=== PATIENT | male | born 1940 | race Caucasian/White ===

== ENCOUNTER 2021-08-14 10:24 | Inpatient (IN) | payer MEDICARE ==
[~2021-08-14] VITALS: Ht 167.6 cm; Wt 83.5 kg
[2021-08-14 11:38] LABS: BASOPHILS % 0.9 % (0.0-2.0); EOSINOPHILS % 0.7 % (0.0-5.0); HEMATOCRIT. 52.5 % (42.0-52.0); HEMOGLOBIN. 16.9 g/dL (14.0-18.0); LYMPHOCYTES % 20.7 % (20.0-50.0); MEAN CORPUSCULAR HEMOGLOBIN 27.7 pg (28.0-32.0); MEAN CORPUSCULAR VOLUME 85.9 fL (80.0-94.0); MEAN PLATELET VOLUME 9.9 fl (7.4-10.4); MONOCYTES % 9.5 % (2.0-8.0); NEUTROPHILS % 68.2 % (40.0-76.0); PLATELET 150 x1000/uL (130-400); RED BLOOD CELL COUNT 6.11 mill/uL (4.7-6.1); RED CELL DISTRIBUTION WIDTH 15.6 % (11.6-14.6)
[2021-08-14 11:44] LABS: CHLORIDE 101 mEq/L (98-107)
[2021-08-14 11:46] LABS: ETHANOL BLOOD < 10 mg/dL
[2021-08-14] MEDS ORDERED: POTASSIUM CHLORIDE 20MEQ TABLET SR PO SCH (13:15)
[2021-08-14] MEDS: SODIUM CHLORIDE 0.9% 1,000 ML IV SCH (14:00)
[2021-08-14 14:42] LABS: FOLIC ACID (FOLATE) SERUM 8.9 ng/mL (>5.38)
[2021-08-14 14:47] LABS: CLARITY URINE CLOUDY (CLEAR); COLOR URINE DARK YELLOW (YELLOW); KETONES URINE 3+ (NEGATIVE); LEUKOCYTE ESTERASE URINE 1+ (NEGATIVE); NITRITE URINE POSITIVE (NEGATIVE); OCCULT BLOOD URINE NEGATIVE (NEGATIVE); PH URINE 5.5 (4.5-8.0); PROTEIN URINE 1+ (NEGATIVE); SPECIFIC GRAVITY URINE 1.035 (1.005-1.030)
[2021-08-14 15:05] LABS: *AMPHETAMINES SCREEN URINE NEGATIVE (NEGATIVE); *BARBITURATES SCREEN URINE NEGATIVE (NEGATIVE); *BENZODIAZEPINES SCREEN URINE NEGATIVE (NEGATIVE); *COCAINE SCREEN URINE NEGATIVE (NEGATIVE); METHADONE URINE SCREEN NEGATIVE (NEGATIVE); OPIATES URINE SCREEN NEGATIVE (NEGATIVE)
[2021-08-14 15:06] LABS: CANNABINOID URINE SCREEN NEGATIVE (NEGATIVE); PHENCYCLIDINE URINE SCREEN NEGATIVE (NEGATIVE)
[2021-08-14] MEDS: ASPIRIN 81MG TABLET PO SCH (15:07)
[2021-08-14] MEDS ORDERED: LORAZEPAM 0.5MG TABLET PO PRN (17:15)
[2021-08-14] MEDS ORDERED: DOCUSATE SODIUM 100MG CAPSULE PO PRN (17:15)
[2021-08-14] MEDS ORDERED: ACETAMINOPHEN 325MG TABLET PO PRN ×2 (17:15)
[2021-08-14] MEDS ORDERED: IPRATROPIUM/ALBUTEROL 0.5-3(2.5)MG/3ML NEB HHN PRN (17:15)
[2021-08-14] MEDS ORDERED: ONDANSETRON HCL 4MG/2ML INJ IV PRN (17:15)
[2021-08-14] MEDS ORDERED: NALOXONE HCL 0.4MG/ML VIAL IV PRN (17:15)
[2021-08-14] MEDS ORDERED: HYDROCODONE/ACETAMINOPHEN 5/325MG TABLET PO PRN (17:15)
[2021-08-14 17:19] VITALS: BP 172/83
[2021-08-14] MEDS: ENOXAPARIN 40MG/0.4ML SYR SUBCUT SCH (18:12)
[2021-08-14 20:00] VITALS: BP 181/88
[2021-08-14] MEDS: LABETALOL 5MG/ML SYR 20 MG/4 ML SYRINGE IV PRN (20:33)
[2021-08-15] VITALS: BP 162/93
[2021-08-15] MEDS: SODIUM CHLORIDE 0.9% 1,000 ML IV SCH ×2 (02:56→15:07)
[2021-08-15 04:00] VITALS: BP 167/92
[2021-08-15 06:51] LABS: CHLORIDE 106 mEq/L (98-107)
[2021-08-15 06:55] LABS: BASOPHILS % 0.7 % (0.0-2.0); EOSINOPHILS % 1.2 % (0.0-5.0); HEMATOCRIT. 46.6 % (42.0-52.0); HEMOGLOBIN. 15.2 g/dL (14.0-18.0); LYMPHOCYTES % 28.3 % (20.0-50.0); MEAN CORPUSCULAR VOLUME 86.1 fL (80.0-94.0); MEAN PLATELET VOLUME 10.9 fl (7.4-10.4); NEUTROPHILS % 58.8 % (40.0-76.0); PLATELET 155 x1000/uL (130-400); RED BLOOD CELL COUNT 5.42 mill/uL (4.7-6.1); RED CELL DISTRIBUTION WIDTH 15.9 % (11.6-14.6)
[2021-08-15 08:22] VITALS: BP 159/86
[2021-08-15] MEDS ORDERED: POTASSIUM CHLORIDE 20MEQ/PACKET PO NR (08:45)
[2021-08-15] MEDS: ASPIRIN 81MG TABLET PO SCH (09:08)
[2021-08-15 12:00] VITALS: BP 155/82
[2021-08-15 15:48] VITALS: BP 158/84
[2021-08-15] MEDS: AMLODIPINE 5MG TABLET PO SCH (15:52)
[2021-08-15] MEDS: ENOXAPARIN 40MG/0.4ML SYR SUBCUT SCH (17:01)
[2021-08-15 20:00] VITALS: BP 124/88
[2021-08-15] MEDS: ATORVASTATIN CALCIUM 20MG TABLET PO SCH (20:52)
[2021-08-15] MEDS: LABETALOL 5MG/ML SYR 20 MG/4 ML SYRINGE IV PRN (23:54)
[2021-08-16] VITALS (8 sets, daily range): BP systolic 140–195; BP diastolic 70–115
[2021-08-16] MEDS: SODIUM CHLORIDE 0.9% 1,000 ML IV SCH ×2 (04:26→16:19)
[2021-08-16 07:15] LABS: BASOPHILS % 0.8 % (0.0-2.0); EOSINOPHILS % 3.6 % (0.0-5.0); HEMATOCRIT. 46.7 % (42.0-52.0); HEMOGLOBIN. 14.8 g/dL (14.0-18.0); MEAN CORPUSCULAR HEMOGLOBIN 27.4 pg (28.0-32.0); MEAN CORPUSCULAR VOLUME 86.3 fL (80.0-94.0); MEAN PLATELET VOLUME 10.4 fl (7.4-10.4); NEUTROPHILS % 49.6 % (40.0-76.0); PLATELET 140 x1000/uL (130-400); RED BLOOD CELL COUNT 5.42 mill/uL (4.7-6.1); RED CELL DISTRIBUTION WIDTH 15.5 % (11.6-14.6)
[2021-08-16 07:36] LABS: CHLORIDE 106 mEq/L (98-107)
[2021-08-16] MEDS: AMLODIPINE 5MG TABLET PO SCH (08:26)
[2021-08-16] MEDS: ASPIRIN 81MG TABLET PO SCH (08:26)
[2021-08-16] MEDS ORDERED: POTASSIUM CHLORIDE INJ 40 MEQ in DEXT 5% WATER 250 ML IV ONE (10:30)
[2021-08-16] MEDS: CLOPIDOGREL 75MG TABLET PO SCH (11:26)
[2021-08-16] MEDS ORDERED: AMLO5TAB88 PO (13:12)
[2021-08-16] MEDS ORDERED: CLOP75TA15 PO (13:12)
[2021-08-16] MEDS ORDERED: ATOR20TA PO (13:12)
[2021-08-16] MEDS: ENOXAPARIN 40MG/0.4ML SYR SUBCUT SCH (18:36)
[2021-08-16] MEDS: ATORVASTATIN CALCIUM 20MG TABLET PO SCH (20:57)
[2021-08-17] VITALS (7 sets, daily range): BP systolic 146–176; BP diastolic 70–90
[2021-08-17] MEDS: LABETALOL 5MG/ML SYR 20 MG/4 ML SYRINGE IV PRN (01:05)
[2021-08-17] MEDS: SODIUM CHLORIDE 0.9% 1,000 ML IV SCH ×2 (04:29→17:00)
[2021-08-17] MEDS: ASPIRIN 81MG TABLET PO SCH (10:00)
[2021-08-17] MEDS: CLOPIDOGREL 75MG TABLET PO SCH (10:00)
[2021-08-17] MEDS: AMLODIPINE 5MG TABLET PO SCH (10:03)
[2021-08-17] MEDS: ENOXAPARIN 40MG/0.4ML SYR SUBCUT SCH (17:35)
[2021-08-17] MEDS: ATORVASTATIN CALCIUM 20MG TABLET PO SCH (20:26)
[2021-08-18 00:05] VITALS: BP 133/69
[2021-08-18 04:00] VITALS: BP 144/71
[2021-08-18 07:28] LABS: BASOPHILS % 0.8 % (0.0-2.0); EOSINOPHILS % 2.9 % (0.0-5.0); HEMATOCRIT. 45.6 % (42.0-52.0); HEMOGLOBIN. 15.4 g/dL (14.0-18.0); LYMPHOCYTES % 31.8 % (20.0-50.0); MEAN CORPUSCULAR HEMOGLOBIN 28.4 pg (28.0-32.0); MEAN CORPUSCULAR VOLUME 84.5 fL (80.0-94.0); MEAN PLATELET VOLUME 10.2 fl (7.4-10.4); MONOCYTES % 8.8 % (2.0-8.0); NEUTROPHILS % 55.7 % (40.0-76.0); PLATELET 139 x1000/uL (130-400); RED CELL DISTRIBUTION WIDTH 15.7 % (11.6-14.6)
[2021-08-18 07:32] LABS: CHLORIDE 107 mEq/L (98-107)
[2021-08-18 08:00] VITALS: BP 115/70
[2021-08-18] MEDS: ASPIRIN 81MG TABLET PO SCH (09:46)
[2021-08-18] MEDS: CLOPIDOGREL 75MG TABLET PO SCH (09:46)
[2021-08-18] MEDS: AMLODIPINE 5MG TABLET PO SCH (09:46)
[2021-08-18] MEDS: SODIUM CHLORIDE 0.9% 1,000 ML IV SCH (09:46)
[2021-08-18 12:00] VITALS: BP 158/91
[2021-08-18 15:17] VITALS: BP 148/89
[2021-08-18 16:00] VITALS: BP 154/89
[2021-08-18] MEDS ORDERED: CLONIDINE 0.1MG TABLET PO NR (18:00)
== END 2021-08-18 18:24 | DRG 64 ==
LOC: ER 10:24 → EDBEDREQ 11:23 → EDBEDREQSVC 11:23 → EDBEDREQ 11:30 → ENRESERV 15:22 → 7EST 16:32
PROVIDERS: ADMIT Internal Medicine; ATTEND Internal Medicine
PROC: 4A10X4Z Monitoring of Central Nervous Electrical Activity, External Approach (ICD-10-PCS; principal; 2021-08-16)
DX: I63.9 Cerebral infarction, unspecified (principal); G92.8 Other toxic encephalopathy; R47.01 Aphasia; E87.6 Hypokalemia; I10 Essential (primary) hypertension; I49.3 Ventricular premature depolarization; R29.703 NIHSS score 3; E78.5 Hyperlipidemia, unspecified; Z20.822 Contact with and (suspected) exposure to COVID-19; R47.1 Dysarthria and anarthria; R74.01 Elevation of levels of liver transaminase levels; Z86.73 Personal history of transient ischemic attack (TIA), and cerebral infarction without residual deficits; Z90.49 Acquired absence of other specified parts of digestive tract
CPT/HCPCS: 36415; 70551; 71045; 80048; 80053; 80061; 80305; 80320; 81003; 82140; 82550; 82607; 82746; 83036; 84484; 85025; 87426; 93005; 93880; 95816; 97116; 97162; 97166; 97530; 99285; J1650; J3480; J3490; J7060; G0480

== ENCOUNTER 2021-08-24 16:47 | Inpatient (IN) | payer MEDICARE ==
[~2021-08-24] VITALS: Ht 190.5 cm; Wt 90.4 kg
[~2021-08-24 16:47] MED LIST: AMLO5TAB88 PO; ATOR20TA PO; CLOP75TA15 PO
[2021-08-24] MEDS ORDERED: LEVOFLOXACIN 750MG PREMIX 150 ML IV ONE (19:00)
[2021-08-24 19:09] LABS: BG BASE EXCESS 0.1 mmol/L (-2.0-2.0); BG CARBOXYHEMOGLOBIN 0.2 % (0.5-1.5); BG DEOXYHEMOGLOBIN 2.8 % (0.0-5.0); BG FRACTION INSPIRED OXYGEN 28; BG HCO3 ACT 22.5 mmol/L (22.0-26.0); BG METHEMOGLOBIN 0.3 % (0.0-1.5); BG OXYGEN SATURATION 97.2 % (92.0-98.5); BG OXYHEMOGLOBIN 96.7 % (94.0-97.0); BG PH 7.479 (7.350-7.450); BG PO2 89.7 mmHg (75.0-100.0); BG SAMPLE SITE RIGHT RADIAL; BG TOTAL HEMOGLOBIN 16.2 g/dL (12.0-18.0); BG VENT MODE NASAL CANNULA
[2021-08-24 20:08] LABS: HEMATOCRIT. 47.6 % (42.0-52.0); HEMOGLOBIN. 15.8 g/dL (14.0-18.0); MEAN CORPUSCULAR HEMOGLOBIN 27.9 pg (28.0-32.0); MEAN CORPUSCULAR VOLUME 83.8 fL (80.0-94.0); MEAN PLATELET VOLUME 9.8 fl (7.4-10.4); PLATELET 141 x1000/uL (130-400); RED BLOOD CELL COUNT 5.68 mill/uL (4.7-6.1); RED CELL DISTRIBUTION WIDTH 15.7 % (11.6-14.6)
[2021-08-24 20:14] LABS: CHLORIDE 103 mEq/L (98-107)
[2021-08-24 21:30] LABS: CLARITY URINE CLOUDY (CLEAR); COLOR URINE DARK YELLOW (YELLOW); KETONES URINE TRACE (NEGATIVE); LEUKOCYTE ESTERASE URINE TRACE (NEGATIVE); NITRITE URINE NEGATIVE (NEGATIVE); OCCULT BLOOD URINE 2+ (NEGATIVE); PROTEIN URINE 3+ (NEGATIVE); SPECIFIC GRAVITY URINE 1.027 (1.005-1.030)
[2021-08-24] MEDS ORDERED: ACETAMINOPHEN 325MG TABLET PO SCH (21:45)
[2021-08-24] MEDS ORDERED: DEXAMETHASONE 10 MG/ML VIAL IV SCH (21:45)
[2021-08-24] MEDS ORDERED: SODIUM CHLORIDE 0.9% 500 ML IV NR (22:00)
[2021-08-24 22:02] LABS: PLATELET ESTIMATE NORMAL
[2021-08-24] MEDS ORDERED: ACETAMINOPHEN 650MG SUPP PR ONE (22:15)
[2021-08-25] MEDS ORDERED: ASPI-1497 MT (09:28)
[2021-08-25] MEDS ORDERED: DOCU-150 MT (09:28)
[2021-08-25 09:48] VITALS: BP 135/77
[2021-08-25] MEDS ORDERED: ONDANSETRON HCL 4MG/2ML INJ IV PRN (10:45)
[2021-08-25] MEDS ORDERED: IPRATROPIUM/ALBUTEROL 0.5-3(2.5)MG/3ML NEB HHN PRN (10:45)
[2021-08-25] MEDS ORDERED: HYDROCODONE/ACETAMINOPHEN 5/325MG TABLET PO PRN (10:45)
[2021-08-25] MEDS ORDERED: LORAZEPAM 0.5MG TABLET PO PRN (10:45)
[2021-08-25] MEDS ORDERED: CLONIDINE 0.1MG TABLET PO PRN (10:45)
[2021-08-25] MEDS ORDERED: ACETAMINOPHEN 325MG TABLET PO PRN ×2 (10:45)
[2021-08-25 12:00] VITALS: BP 143/71
[2021-08-25] MEDS: ASPIRIN 81MG EC TABLET PO SCH (12:20)
[2021-08-25] MEDS: AMLODIPINE 5MG TABLET PO SCH (12:20)
[2021-08-25] MEDS: DEXAMETHASONE 10 MG/ML VIAL IV SCH (12:20)
[2021-08-25] MEDS: CLOPIDOGREL 75MG TABLET PO SCH (12:20)
[2021-08-25] MEDS: ENOXAPARIN 40MG/0.4ML SYR SUBCUT SCH (12:21)
[2021-08-25] MEDS: AZITHROMYCIN 500 MG in DEXT 5% WATER 250 ML IV SCH (13:07)
[2021-08-25] MEDS: CEFTRIAXONE 1,000 MG in DEXTROSE 5% WATER 50 ML IV SCH (13:07)
[2021-08-25] MEDS ORDERED: GUAIFENESIN-DM 200MG-20MG/10ML UDC PO PRN (15:15)
[2021-08-25] MEDS ORDERED: ALBUTEROL 6.7GM HFA INHALER ORI PRN (15:15)
[2021-08-25 16:00] VITALS: BP 141/81
[2021-08-25 20:00] VITALS: BP 139/84
[2021-08-25] MEDS: ATORVASTATIN CALCIUM 20MG TABLET PO SCH (20:49)
[2021-08-26 00:52] VITALS: BP 144/84
[2021-08-26 04:00] VITALS: BP 136/85
[2021-08-26] MEDS: CLOPIDOGREL 75MG TABLET PO SCH (08:33)
[2021-08-26] MEDS: DEXAMETHASONE 10 MG/ML VIAL IV SCH (08:33)
[2021-08-26] MEDS: ASPIRIN 81MG EC TABLET PO SCH (08:33)
[2021-08-26] MEDS: AMLODIPINE 5MG TABLET PO SCH (08:34)
[2021-08-26] MEDS: ENOXAPARIN 40MG/0.4ML SYR SUBCUT SCH (08:34)
[2021-08-26 12:00] VITALS: BP 141/79
[2021-08-26] MEDS: CEFTRIAXONE 1,000 MG in DEXTROSE 5% WATER 50 ML IV SCH (12:15)
[2021-08-26] MEDS: AZITHROMYCIN 500 MG in DEXT 5% WATER 250 ML IV SCH (12:17)
[2021-08-26 16:00] VITALS: BP 139/93
[2021-08-26] MEDS ORDERED: NALOXONE HCL 0.4MG/ML VIAL IV PRN (16:45)
[2021-08-26] MEDS: CHLORPROMAZINE HCL 25MG/1ML AMP IM PRN (17:29)
[2021-08-26 20:00] VITALS: BP 139/87
[2021-08-26] MEDS: ATORVASTATIN CALCIUM 20MG TABLET PO SCH (20:59)
[2021-08-27] VITALS: BP 134/83
[2021-08-27 04:00] VITALS: BP 152/89
[2021-08-27 08:00] VITALS: BP 148/91
[2021-08-27] MEDS: AMLODIPINE 5MG TABLET PO SCH (08:43)
[2021-08-27] MEDS: DOCUSATE SODIUM 100MG CAPSULE PO PRN (08:43)
[2021-08-27] MEDS: CLOPIDOGREL 75MG TABLET PO SCH (08:43)
[2021-08-27] MEDS: CHLORPROMAZINE HCL 25MG/1ML AMP IM PRN (08:43)
[2021-08-27] MEDS: ASPIRIN 81MG EC TABLET PO SCH (08:43)
[2021-08-27] MEDS: MULTIVITAMINS,THER W-MINERALS TABLET PO SCH (08:43)
[2021-08-27] MEDS: DEXAMETHASONE 10 MG/ML VIAL IV SCH (08:43)
[2021-08-27] MEDS: ENOXAPARIN 40MG/0.4ML SYR SUBCUT SCH (08:44)
[2021-08-27 08:45] LABS: HEMATOCRIT. 44.5 % (42.0-52.0); HEMOGLOBIN. 14.8 g/dL (14.0-18.0); MEAN CORPUSCULAR HEMOGLOBIN 28.1 pg (28.0-32.0); MEAN CORPUSCULAR VOLUME 84.6 fL (80.0-94.0); MEAN PLATELET VOLUME 9.5 fl (7.4-10.4); PLATELET 176 x1000/uL (130-400); RED BLOOD CELL COUNT 5.26 mill/uL (4.7-6.1); RED CELL DISTRIBUTION WIDTH 16.3 % (11.6-14.6)
[2021-08-27 11:26] LABS: PLATELET ESTIMATE NORMAL
[2021-08-27 12:00] VITALS: BP 120/67
[2021-08-27] MEDS: CEFTRIAXONE 1,000 MG in DEXTROSE 5% WATER 50 ML IV SCH (12:25)
[2021-08-27] MEDS: AZITHROMYCIN 500 MG in DEXT 5% WATER 250 ML IV SCH (12:29)
[2021-08-27 16:00] VITALS: BP 145/90
[2021-08-27] MEDS: POLYETHYLENE GLYCOL 3350 (17GM) 1 DOSE PACK PO PRN (18:40)
[2021-08-27 20:00] VITALS: BP 142/85
[2021-08-27] MEDS: ATORVASTATIN CALCIUM 20MG TABLET PO SCH (20:53)
[2021-08-28] VITALS: BP 138/86
[2021-08-28 04:00] VITALS: BP 130/80
[2021-08-28 08:00] VITALS: BP_SYST 132; BP_SYST 181; BP_DIAS 85
[2021-08-28] MEDS: DEXAMETHASONE 10 MG/ML VIAL IV SCH (09:11)
[2021-08-28] MEDS: ENOXAPARIN 40MG/0.4ML SYR SUBCUT SCH (09:11)
[2021-08-28] MEDS: DOCUSATE SODIUM 100MG CAPSULE PO PRN (09:11)
[2021-08-28] MEDS: POLYETHYLENE GLYCOL 3350 (17GM) 1 DOSE PACK PO PRN (09:11)
[2021-08-28] MEDS: MULTIVITAMINS,THER W-MINERALS TABLET PO SCH (09:11)
[2021-08-28] MEDS: AMLODIPINE 5MG TABLET PO SCH (09:12)
[2021-08-28] MEDS: AZITHROMYCIN 500 MG TABLET PO SCH (09:12)
[2021-08-28] MEDS: ASPIRIN 81MG EC TABLET PO SCH (09:12)
[2021-08-28] MEDS: CLOPIDOGREL 75MG TABLET PO SCH (09:12)
[2021-08-28 12:00] VITALS: BP 131/75
[2021-08-28] MEDS: CEFTRIAXONE 1,000 MG in DEXTROSE 5% WATER 50 ML IV SCH (12:28)
[2021-08-28 16:00] VITALS: BP 156/93
[2021-08-28 17:44] LABS: HEMATOCRIT. 46.8 % (42.0-52.0); HEMOGLOBIN. 14.9 g/dL (14.0-18.0); MEAN CORPUSCULAR HEMOGLOBIN 27.1 pg (28.0-32.0); MEAN CORPUSCULAR VOLUME 85.5 fL (80.0-94.0); MEAN PLATELET VOLUME 10.4 fl (7.4-10.4); PLATELET 204 x1000/uL (130-400); RED BLOOD CELL COUNT 5.47 mill/uL (4.7-6.1); RED CELL DISTRIBUTION WIDTH 16.4 % (11.6-14.6)
[2021-08-28 18:17] LABS: CHLORIDE 103 mEq/L (98-107)
[2021-08-28 20:00] VITALS: BP 158/88
[2021-08-28] MEDS: ATORVASTATIN CALCIUM 20MG TABLET PO SCH (20:59)
[2021-08-29] VITALS: BP 158/92
[2021-08-29 08:00] VITALS: BP 146/91
[2021-08-29] MEDS: ENOXAPARIN 40MG/0.4ML SYR SUBCUT SCH (08:30)
[2021-08-29] MEDS: AZITHROMYCIN 500 MG TABLET PO SCH (08:30)
[2021-08-29] MEDS: CLOPIDOGREL 75MG TABLET PO SCH (08:30)
[2021-08-29] MEDS: CHLORPROMAZINE HCL 25MG/1ML AMP IM PRN (08:30)
[2021-08-29] MEDS: MULTIVITAMINS,THER W-MINERALS TABLET PO SCH (08:30)
[2021-08-29] MEDS: ASPIRIN 81MG EC TABLET PO SCH (08:30)
[2021-08-29] MEDS: DEXAMETHASONE 10 MG/ML VIAL IV SCH (08:30)
[2021-08-29] MEDS: AMLODIPINE 5MG TABLET PO SCH (08:31)
[2021-08-29 12:00] VITALS: BP 133/81
[2021-08-29] MEDS: CEFTRIAXONE 1,000 MG in DEXTROSE 5% WATER 50 ML IV SCH (15:46)
[2021-08-29 15:49] LABS: PLATELET ESTIMATE NORMAL
[2021-08-29 16:00] VITALS: BP 158/98
[2021-08-29 20:00] VITALS: BP 141/83
[2021-08-29] MEDS: ATORVASTATIN CALCIUM 20MG TABLET PO SCH (21:59)
[2021-08-30 00:49] VITALS: BP 150/80
[2021-08-30 04:00] VITALS: BP_SYST 140; BP_SYST 167; BP_DIAS 75; BP_DIAS 80
[2021-08-30 08:00] VITALS: BP 145/89
[2021-08-30] MEDS: ASPIRIN 81MG EC TABLET PO SCH (09:08)
[2021-08-30] MEDS: ENOXAPARIN 40MG/0.4ML SYR SUBCUT SCH (09:08)
[2021-08-30] MEDS: MULTIVITAMINS,THER W-MINERALS TABLET PO SCH (09:09)
[2021-08-30] MEDS: DEXAMETHASONE 10 MG/ML VIAL IV SCH (09:09)
[2021-08-30] MEDS: CLOPIDOGREL 75MG TABLET PO SCH (09:09)
[2021-08-30] MEDS: AMLODIPINE 5MG TABLET PO SCH (09:09)
[2021-08-30 12:00] VITALS: BP 137/81
[2021-08-30] MEDS: CEFTRIAXONE 1,000 MG in DEXTROSE 5% WATER 50 ML IV SCH (13:11)
[2021-08-30 16:00] VITALS: BP 138/94
[2021-08-30 16:18] LABS: BG BASE EXCESS 3.3 mmol/L (-2.0-2.0); BG CARBOXYHEMOGLOBIN 0.4 % (0.5-1.5); BG DEOXYHEMOGLOBIN 6.3 % (0.0-5.0); BG FRACTION INSPIRED OXYGEN 21; BG HCO3 ACT 26.1 mmol/L (22.0-26.0); BG METHEMOGLOBIN 0.4 % (0.0-1.5); BG OXYGEN SATURATION 93.6 % (92.0-98.5); BG OXYHEMOGLOBIN 92.9 % (94.0-97.0); BG PCO2 34.6 mmHg (35.0-45.0); BG PH 7.496 (7.350-7.450); BG PO2 62.7 mmHg (75.0-100.0); BG SAMPLE SITE RIGHT RADIAL; BG VENT MODE ROOM AIR
[2021-08-30 20:00] VITALS: BP 146/76
[2021-08-30] MEDS: ATORVASTATIN CALCIUM 20MG TABLET PO SCH (22:07)
[2021-08-31] VITALS: BP_SYST 136; BP_SYST 148; BP_DIAS 93; BP_DIAS 94
[2021-08-31 04:00] VITALS: BP 138/92
[2021-08-31 08:00] VITALS: BP 144/81
[2021-08-31] MEDS: MULTIVITAMINS,THER W-MINERALS TABLET PO SCH (09:21)
[2021-08-31] MEDS: ENOXAPARIN 40MG/0.4ML SYR SUBCUT SCH (09:21)
[2021-08-31] MEDS: CLOPIDOGREL 75MG TABLET PO SCH (09:21)
[2021-08-31] MEDS: DEXAMETHASONE 10 MG/ML VIAL IV SCH (09:21)
[2021-08-31] MEDS: ASPIRIN 81MG EC TABLET PO SCH (09:21)
[2021-08-31] MEDS: AMLODIPINE 5MG TABLET PO SCH (09:22)
[2021-08-31 12:00] VITALS: BP 138/79
[2021-08-31 16:00] VITALS: BP 158/78
[2021-08-31 20:30] VITALS: BP 130/93
[2021-08-31] MEDS: ATORVASTATIN CALCIUM 20MG TABLET PO SCH (22:55)
[2021-09-01 00:30] VITALS: BP 134/93
[2021-09-01 04:00] VITALS: BP 145/81
[2021-09-01 08:00] VITALS: BP 137/78
[2021-09-01] MEDS: ENOXAPARIN 40MG/0.4ML SYR SUBCUT SCH (09:11)
[2021-09-01] MEDS: CLOPIDOGREL 75MG TABLET PO SCH (09:12)
[2021-09-01] MEDS: AMLODIPINE 5MG TABLET PO SCH (09:12)
[2021-09-01] MEDS: MULTIVITAMINS,THER W-MINERALS TABLET PO SCH (09:12)
[2021-09-01] MEDS: ASPIRIN 81MG EC TABLET PO SCH (09:12)
[2021-09-01] MEDS: DEXAMETHASONE 10 MG/ML VIAL IV SCH (09:12)
[2021-09-01 11:29] LABS: HEMOGLOBIN. 15.4 g/dL (14.0-18.0); MEAN CORPUSCULAR HEMOGLOBIN 27.9 pg (28.0-32.0); MEAN CORPUSCULAR VOLUME 84.9 fL (80.0-94.0); PLATELET 300 x1000/uL (130-400); RED BLOOD CELL COUNT 5.53 mill/uL (4.7-6.1); RED CELL DISTRIBUTION WIDTH 16.2 % (11.6-14.6)
[2021-09-01 11:40] LABS: CHLORIDE 109 mEq/L (98-107)
[2021-09-01 12:00] VITALS: BP 106/68
[2021-09-01 16:00] VITALS: BP_SYST 106; BP_SYST 144; BP_DIAS 75; BP_DIAS 76
[2021-09-01 19:39] LABS: CLARITY URINE CLEAR (CLEAR); COLOR URINE DARK YELLOW (YELLOW); KETONES URINE NEGATIVE (NEGATIVE); LEUKOCYTE ESTERASE URINE NEGATIVE (NEGATIVE); NITRITE URINE NEGATIVE (NEGATIVE); OCCULT BLOOD URINE NEGATIVE (NEGATIVE); PH URINE 6.5 (4.5-8.0); PROTEIN URINE 1+ (NEGATIVE); SPECIFIC GRAVITY URINE 1.028 (1.005-1.030); UROBILINOGEN URINE 0.2 E.U./dL (0.2-1.0)
[2021-09-01 20:00] VITALS: BP 145/79
[2021-09-01 21:12] LABS: PLATELET ESTIMATE NORMAL
[2021-09-01] MEDS: ATORVASTATIN CALCIUM 20MG TABLET PO SCH (22:06)
[2021-09-02] VITALS (7 sets, daily range): BP systolic 124–149; BP diastolic 72–89
[2021-09-02 07:40] LABS: HEMOGLOBIN. 16.3 g/dL (14.0-18.0); MEAN CORPUSCULAR HEMOGLOBIN 27.8 pg (28.0-32.0); MEAN CORPUSCULAR VOLUME 85.4 fL (80.0-94.0); MEAN PLATELET VOLUME 8.6 fl (7.4-10.4); PLATELET 210 x1000/uL (130-400); RED BLOOD CELL COUNT 5.86 mill/uL (4.7-6.1); RED CELL DISTRIBUTION WIDTH 16.6 % (11.6-14.6)
[2021-09-02 07:47] LABS: CHLORIDE 110 mEq/L (98-107)
[2021-09-02] MEDS: DEXAMETHASONE 10 MG/ML VIAL IV SCH (08:28)
[2021-09-02] MEDS: ASPIRIN 81MG EC TABLET PO SCH (08:28)
[2021-09-02] MEDS: CLOPIDOGREL 75MG TABLET PO SCH (08:28)
[2021-09-02] MEDS: AMLODIPINE 5MG TABLET PO SCH (08:28)
[2021-09-02] MEDS: DOCUSATE SODIUM 100MG CAPSULE PO PRN (08:28)
[2021-09-02] MEDS: MULTIVITAMINS,THER W-MINERALS TABLET PO SCH (08:28)
[2021-09-02] MEDS: ENOXAPARIN 40MG/0.4ML SYR SUBCUT SCH (08:30)
[2021-09-02 12:42] LABS: ATYPICAL LYMPHOCYTES 1; PLATELET ESTIMATE NORMAL
[2021-09-02] MEDS ORDERED: ATOR40TA70 MT (14:03)
[2021-09-02] MEDS: ATORVASTATIN CALCIUM 20MG TABLET PO SCH (22:12)
[2021-09-03] VITALS: BP 156/84
[2021-09-03 04:00] VITALS: BP 157/95
[2021-09-03 08:00] VITALS: BP 149/84
[2021-09-03] MEDS: MULTIVITAMINS,THER W-MINERALS TABLET PO SCH (08:55)
[2021-09-03] MEDS: CLOPIDOGREL 75MG TABLET PO SCH (08:55)
[2021-09-03] MEDS: AMLODIPINE 5MG TABLET PO SCH (08:55)
[2021-09-03] MEDS: ENOXAPARIN 40MG/0.4ML SYR SUBCUT SCH (08:55)
[2021-09-03] MEDS: ASPIRIN 81MG EC TABLET PO SCH (08:55)
[2021-09-03 11:37] VITALS: BP 151/91
[2021-09-03 12:00] VITALS: BP 151/91
== END 2021-09-03 14:36 | DRG 871 ==
LOC: ER 16:47 → MICUSO 23:14 → 7WST 08-25 09:12
PROVIDERS: ADMIT Internal Medicine; ATTEND Internal Medicine
DX: A41.89 Other specified sepsis (principal); J12.82 Pneumonia due to coronavirus disease 2019; U07.1 COVID-19; J96.00 Acute respiratory failure, unspecified whether with hypoxia or hypercapnia; E88.09 Other disorders of plasma-protein metabolism, not elsewhere classified; I48.91 Unspecified atrial fibrillation; E78.00 Pure hypercholesterolemia, unspecified; I25.10 Atherosclerotic heart disease of native coronary artery without angina pectoris; I48.0 Paroxysmal atrial fibrillation; M19.90 Unspecified osteoarthritis, unspecified site; F17.200 Nicotine dependence, unspecified, uncomplicated; R74.01 Elevation of levels of liver transaminase levels; R80.9 Proteinuria, unspecified; E78.5 Hyperlipidemia, unspecified; E87.6 Hypokalemia; Z20.822 Contact with and (suspected) exposure to COVID-19; I11.0 Hypertensive heart disease with heart failure; I50.9 Heart failure, unspecified; Z87.440 Personal history of urinary (tract) infections; Z90.49 Acquired absence of other specified parts of digestive tract; I69.322 Dysarthria following cerebral infarction; I69.328 Other speech and language deficits following cerebral infarction; I25.2 Old myocardial infarction; Z79.02 Long term (current) use of antithrombotics/antiplatelets
CPT/HCPCS: 36415; 36600; 71045; 74018; 80048; 80053; 80076; 81003; 82375; 82728; 82805; 83605; 83880; 84145; 84484; 85025; 85379; 86140; 87426; 87804; 93005; 99291; C1893; C9803; J0456; J0696; J1100; J1650; J1956; J3230; J7040; J7060; U0003; U0005

== ENCOUNTER 2021-09-13 20:48 | Inpatient (IN) | payer MEDICARE ==
[~2021-09-13] VITALS: Ht 162.6 cm; Wt 90.7 kg
[~2021-09-13 20:48] MED LIST changes: +ASPI-1497 MT; -ATOR20TA PO; +ATOR40TA70 MT; +DOCU-150 MT
[2021-09-13] MEDS ORDERED: SODIUM CHLORIDE 0.9% 1,000 ML IV ONE (23:00)
[2021-09-13 23:24] LABS: EOSINOPHILS % 2.4 % (0.0-5.0); HEMATOCRIT. 48.6 % (42.0-52.0); HEMOGLOBIN. 15.7 g/dL (14.0-18.0); LYMPHOCYTES % 15.4 % (20.0-50.0); MEAN CORPUSCULAR HEMOGLOBIN 27.7 pg (28.0-32.0); MEAN CORPUSCULAR VOLUME 85.9 fL (80.0-94.0); MEAN PLATELET VOLUME 9.6 fl (7.4-10.4); MONOCYTES % 8.7 % (2.0-8.0); NEUTROPHILS % 72.5 % (40.0-76.0); PLATELET 175 x1000/uL (130-400); RED BLOOD CELL COUNT 5.65 mill/uL (4.7-6.1); RED CELL DISTRIBUTION WIDTH 16.6 % (11.6-14.6)
[2021-09-13 23:28] LABS: CHLORIDE 127 mEq/L (98-107)
[2021-09-14] MEDS ORDERED: GUAIFENESIN 200MG/10ML SUGAR FREE UDC PO PRN (04:15)
[2021-09-14] MEDS ORDERED: MAGNESIUM/ALUMINUM HYDROXIDE/SIMETHICONE 30ML UDC PO PRN (04:15)
[2021-09-14] MEDS ORDERED: ACETAMINOPHEN 325MG TABLET PO PRN (04:15)
[2021-09-14] MEDS ORDERED: ONDANSETRON HCL 4MG/2ML INJ IV PRN (04:15)
[2021-09-14] MEDS ORDERED: DOCUSATE SODIUM 100MG CAPSULE PO PRN (04:15)
[2021-09-14] MEDS ORDERED: ENOXAPARIN 40MG/0.4ML SYR SUBCUT SCH (04:15)
[2021-09-14] MEDS ORDERED: CLONIDINE 0.1MG TABLET PO PRN (04:15)
[2021-09-14] MEDS: ENOXAPARIN 30MG/0.3ML SYR SUBCUT SCH ×2 (09:24→21:29)
[2021-09-14] MEDS: MULTIVITAMINS,THER W-MINERALS TABLET PO SCH (09:24)
[2021-09-14] MEDS: AMLODIPINE 10MG TABLET PO SCH (09:28)
[2021-09-14] MEDS: THIAMINE HCL 100MG TABLET PO SCH (09:28)
[2021-09-14] MEDS: DEXTROSE 5% WATER 1,000 ML IV SCH ×2 (11:00→17:41)
[2021-09-14 21:30] VITALS: BP 109/77
[2021-09-15] VITALS: BP 137/80
[2021-09-15 04:00] VITALS: BP 112/79
[2021-09-15] MEDS: DEXTROSE 5% WATER 1,000 ML IV SCH ×2 (06:06→22:15)
[2021-09-15 08:00] VITALS: BP_SYST 111; BP_SYST 148; BP_DIAS 76; BP_DIAS 97
[2021-09-15] MEDS: AMLODIPINE 10MG TABLET PO SCH (10:01)
[2021-09-15] MEDS: THIAMINE HCL 100MG TABLET PO SCH (10:01)
[2021-09-15] MEDS: MULTIVITAMINS,THER W-MINERALS TABLET PO SCH (10:01)
[2021-09-15] MEDS: ENOXAPARIN 30MG/0.3ML SYR SUBCUT SCH ×2 (10:01→21:00)
[2021-09-15] MEDS ORDERED: LIDOCAINE HCL 1% 20ML VIAL (Pyxis) INJ ONE (11:23)
[2021-09-15 12:00] VITALS: BP 121/80
[2021-09-15 15:41] LABS: BASOPHILS % 0.6 % (0.0-2.0); EOSINOPHILS % 4.1 % (0.0-5.0); HEMATOCRIT. 45.3 % (42.0-52.0); HEMOGLOBIN. 14.4 g/dL (14.0-18.0); LYMPHOCYTES % 24.6 % (20.0-50.0); MEAN CORPUSCULAR HEMOGLOBIN 27.2 pg (28.0-32.0); MEAN CORPUSCULAR VOLUME 85.3 fL (80.0-94.0); MEAN PLATELET VOLUME 9.5 fl (7.4-10.4); MONOCYTES % 8.7 % (2.0-8.0); PLATELET 116 x1000/uL (130-400); RED CELL DISTRIBUTION WIDTH 16.1 % (11.6-14.6)
[2021-09-15 16:00] VITALS: BP 120/80
[2021-09-15 16:06] LABS: CHLORIDE 122 mEq/L (98-107)
[2021-09-15 20:00] VITALS: BP 119/69
[2021-09-16 04:00] VITALS: BP 123/76
[2021-09-16] MEDS: DEXTROSE 5% WATER 1,000 ML IV SCH ×2 (05:00→13:41)
[2021-09-16] MEDS: MULTIVITAMINS,THER W-MINERALS TABLET PO SCH (08:47)
[2021-09-16] MEDS: AMLODIPINE 10MG TABLET PO SCH (08:47)
[2021-09-16] MEDS: THIAMINE HCL 100MG TABLET PO SCH (08:48)
[2021-09-16] MEDS: ENOXAPARIN 30MG/0.3ML SYR SUBCUT SCH ×2 (09:00→21:55)
[2021-09-16 18:42] LABS: INR 1.2; PROTHROMBIN TIME 12.3 sec (9.6-11.0)
[2021-09-16 20:00] VITALS: BP 105/82
[2021-09-16] MEDS: PANTOPRAZOLE SODIUM 40 MG/VIAL IV SCH (21:44)
[2021-09-16] MEDS: MIRTAZAPINE 15MG TABLET PO SCH (21:45)
[2021-09-16] MEDS: RISPERIDONE 0.25MG TABLET PO SCH (21:45)
[2021-09-17] VITALS: BP 94/56
[2021-09-17 04:00] VITALS: BP 131/80
[2021-09-17 06:54] LABS: CHLORIDE 115 mEq/L (98-107)
[2021-09-17 07:06] LABS: HEMOGLOBIN. 14.7 g/dL (14.0-18.0); MEAN CORPUSCULAR HEMOGLOBIN 27.9 pg (28.0-32.0); MEAN CORPUSCULAR VOLUME 85.6 fL (80.0-94.0); RED BLOOD CELL COUNT 5.25 mill/uL (4.7-6.1); RED CELL DISTRIBUTION WIDTH 15.9 % (11.6-14.6)
[2021-09-17 08:00] VITALS: BP 121/72
[2021-09-17] MEDS: AMLODIPINE 10MG TABLET PO SCH (09:00)
[2021-09-17] MEDS: ENOXAPARIN 30MG/0.3ML SYR SUBCUT SCH ×2 (09:00→21:00)
[2021-09-17] MEDS: RISPERIDONE 0.25MG TABLET PO SCH ×2 (09:00→23:12)
[2021-09-17] MEDS: THIAMINE HCL 100MG TABLET PO SCH (09:00)
[2021-09-17] MEDS: MULTIVITAMINS,THER W-MINERALS TABLET PO SCH (09:00)
[2021-09-17] MEDS: PANTOPRAZOLE SODIUM 40 MG/VIAL IV SCH ×2 (09:00→23:11)
[2021-09-17 10:11] LABS: PLATELET ESTIMATE DECREASED
[2021-09-17 10:12] LABS: MEAN PLATELET VOLUME 10.6 fl (7.4-10.4); PLATELET 95 x1000/uL (130-400)
[2021-09-17] MEDS ORDERED: CEFAZOLIN 1000MG PREMIX 50 ML IV ONE ×2 (11:56→12:00)
[2021-09-17] MEDS ORDERED: MIDAZOLAM HCL 5 MG/5 ML VIAL ONE (11:56)
[2021-09-17] MEDS ORDERED: FENTANYL CITRATE/PF 50MCG/ML 2ML VIAL ONE (11:56)
[2021-09-17] MEDS ORDERED: MIDAZOLAM HCL 2 MG/2 ML VIAL IV PRN (12:04)
[2021-09-17] MEDS ORDERED: FENTANYL CITRATE/PF 50MCG/ML 2ML VIAL IV PRN (12:05)
[2021-09-17] MEDS: DEXTROSE 5% WATER 1,000 ML IV SCH (12:15)
[2021-09-17 16:00] VITALS: BP 122/69
[2021-09-17 20:00] VITALS: BP 124/93
[2021-09-17 20:11] LABS: INR 1.2; PROTHROMBIN TIME 12.8 sec (9.6-11.0)
[2021-09-17] MEDS: MIRTAZAPINE 15MG TABLET PO SCH (23:11)
[2021-09-18] VITALS: BP 105/86
[2021-09-18] MEDS: DEXTROSE 5% WATER 1,000 ML IV SCH ×2 (01:35→15:53)
[2021-09-18 04:00] VITALS: BP 130/68
[2021-09-18 08:00] VITALS: BP 133/78
[2021-09-18] MEDS: ENOXAPARIN 30MG/0.3ML SYR SUBCUT SCH ×2 (09:52→21:00)
[2021-09-18] MEDS: PANTOPRAZOLE SODIUM 40 MG/VIAL IV SCH ×2 (09:53→22:51)
[2021-09-18] MEDS: RISPERIDONE 0.25MG TABLET PO SCH ×2 (09:53→22:51)
[2021-09-18] MEDS: THIAMINE HCL 100MG TABLET PO SCH (09:53)
[2021-09-18] MEDS: AMLODIPINE 10MG TABLET PO SCH (09:53)
[2021-09-18] MEDS: MULTIVITAMINS,THER W-MINERALS TABLET PO SCH (09:53)
[2021-09-18 12:00] VITALS: BP 124/68
[2021-09-18 16:00] VITALS: BP 109/68
[2021-09-18 20:00] VITALS: BP 103/68
[2021-09-18] MEDS: MIRTAZAPINE 15MG TABLET PO SCH (22:52)
[2021-09-19] VITALS: BP 112/68
[2021-09-19 04:00] VITALS: BP 109/65
[2021-09-19 08:00] VITALS: BP 118/68
[2021-09-19] MEDS: MULTIVITAMINS,THER W-MINERALS TABLET PO SCH (09:44)
[2021-09-19] MEDS: PANTOPRAZOLE SODIUM 40 MG/VIAL IV SCH ×2 (09:44→22:20)
[2021-09-19] MEDS: ENOXAPARIN 30MG/0.3ML SYR SUBCUT SCH ×2 (09:45→21:00)
[2021-09-19] MEDS: AMLODIPINE 10MG TABLET PO SCH (09:45)
[2021-09-19] MEDS: RISPERIDONE 0.25MG TABLET PO SCH ×2 (09:45→22:20)
[2021-09-19] MEDS: THIAMINE HCL 100MG TABLET PO SCH (10:06)
[2021-09-19 12:00] VITALS: BP 114/62
[2021-09-19 16:00] VITALS: BP 110/68
[2021-09-19 20:00] VITALS: BP 112/69
[2021-09-19] MEDS: MIRTAZAPINE 15MG TABLET PO SCH (22:20)
[2021-09-20] VITALS: BP 118/61
[2021-09-20 04:00] VITALS: BP 121/71
[2021-09-20 08:00] VITALS: BP 124/73
[2021-09-20] MEDS: ENOXAPARIN 30MG/0.3ML SYR SUBCUT SCH ×2 (09:00→20:43)
[2021-09-20] MEDS: PANTOPRAZOLE SODIUM 40 MG/VIAL IV SCH ×2 (09:51→20:43)
[2021-09-20] MEDS: MULTIVITAMINS,THER W-MINERALS TABLET PO SCH (09:52)
[2021-09-20] MEDS: AMLODIPINE 10MG TABLET PO SCH (09:52)
[2021-09-20] MEDS: RISPERIDONE 0.25MG TABLET PO SCH ×2 (09:52→20:43)
[2021-09-20] MEDS: THIAMINE HCL 100MG TABLET PO SCH (09:53)
[2021-09-20 12:00] VITALS: BP 126/78
[2021-09-20 16:00] VITALS: BP 140/87
[2021-09-20 20:00] VITALS: BP 123/81
[2021-09-20] MEDS: MIRTAZAPINE 15MG TABLET PO SCH (20:43)
[2021-09-21 04:00] VITALS: BP 107/55
[2021-09-21 05:56] LABS: BASOPHILS % 0.3 % (0.0-2.0); EOSINOPHILS % 2.9 % (0.0-5.0); HEMATOCRIT. 40.7 % (42.0-52.0); HEMOGLOBIN. 13.5 g/dL (14.0-18.0); MEAN CORPUSCULAR HEMOGLOBIN 27.9 pg (28.0-32.0); MEAN CORPUSCULAR VOLUME 83.9 fL (80.0-94.0); MEAN PLATELET VOLUME 10.5 fl (7.4-10.4); MONOCYTES % 9.4 % (2.0-8.0); NEUTROPHILS % 68.4 % (40.0-76.0); PLATELET 95 x1000/uL (130-400); RED BLOOD CELL COUNT 4.85 mill/uL (4.7-6.1); RED CELL DISTRIBUTION WIDTH 16.2 % (11.6-14.6)
[2021-09-21 08:00] VITALS: BP 122/74
[2021-09-21] MEDS: RISPERIDONE 0.25MG TABLET PO SCH ×2 (09:00→21:54)
[2021-09-21] MEDS: ENOXAPARIN 30MG/0.3ML SYR SUBCUT SCH ×2 (09:00→22:02)
[2021-09-21] MEDS: AMLODIPINE 10MG TABLET PO SCH (09:59)
[2021-09-21] MEDS: MULTIVITAMINS,THER W-MINERALS TABLET PO SCH (10:00)
[2021-09-21] MEDS: THIAMINE HCL 100MG TABLET PO SCH (10:01)
[2021-09-21] MEDS: PANTOPRAZOLE SODIUM 40 MG/VIAL IV SCH ×2 (10:01→21:54)
[2021-09-21 12:00] VITALS: BP 122/71
[2021-09-21 12:25] LABS: CHLORIDE 110 mEq/L (98-107)
[2021-09-21 16:00] VITALS: BP 130/80
[2021-09-21 20:00] VITALS: BP 131/72
[2021-09-21] MEDS: MIRTAZAPINE 15MG TABLET PO SCH (21:54)
[2021-09-22] VITALS: BP 118/69
[2021-09-22 04:00] VITALS: BP_SYST 130; BP_SYST 98; BP_DIAS 72; BP_DIAS 73
[2021-09-22 08:00] VITALS: BP 127/73
[2021-09-22] MEDS: ENOXAPARIN 30MG/0.3ML SYR SUBCUT SCH (08:22)
[2021-09-22] MEDS: THIAMINE HCL 100MG TABLET PO SCH (09:46)
[2021-09-22] MEDS: RISPERIDONE 0.25MG TABLET PO SCH (09:46)
[2021-09-22] MEDS: MULTIVITAMINS,THER W-MINERALS TABLET PO SCH (09:46)
[2021-09-22] MEDS: AMLODIPINE 10MG TABLET PO SCH (09:47)
[2021-09-22] MEDS: PANTOPRAZOLE SODIUM 40 MG/VIAL IV SCH (09:47)
[2021-09-22 12:00] VITALS: BP 145/83
[2021-09-22 14:36] VITALS: BP 145/83
== END 2021-09-22 15:38 | DRG 682 ==
LOC: ER 20:48 → 6EST 09-14 02:56 → EDBEDREQTM 09-14 03:35 → EDBEDREQ 09-14 03:35 → EDBEDREQSVC 09-14 07:06 → ENRESERV 09-14 20:51
PROVIDERS: ADMIT Hospitalist; ATTEND Hospitalist
PROC: 02HV33Z Insertion of Infusion Device into Superior Vena Cava, Percutaneous Approach (ICD-10-PCS; 2021-09-15)
PROC: B548ZZA Ultrasonography of Superior Vena Cava, Guidance (ICD-10-PCS; 2021-09-15)
PROC: B5181ZA Fluoroscopy of Superior Vena Cava using Low Osmolar Contrast, Guidance (ICD-10-PCS; 2021-09-15)
PROC: 0DH63UZ Insertion of Feeding Device into Stomach, Percutaneous Approach (ICD-10-PCS; principal; 2021-09-17)
DX: N17.9 Acute kidney failure, unspecified (principal); E43 Unspecified severe protein-calorie malnutrition; G93.41 Metabolic encephalopathy; E87.0 Hyperosmolality and hypernatremia; J98.11 Atelectasis; E86.0 Dehydration; Z20.822 Contact with and (suspected) exposure to COVID-19; F03.90 Unspecified dementia, unspecified severity, without behavioral disturbance, psychotic disturbance, mood disturbance, and anxiety; I25.10 Atherosclerotic heart disease of native coronary artery without angina pectoris; I48.91 Unspecified atrial fibrillation; I10 Essential (primary) hypertension; E78.5 Hyperlipidemia, unspecified; M19.90 Unspecified osteoarthritis, unspecified site; E78.00 Pure hypercholesterolemia, unspecified; R62.7 Adult failure to thrive; K29.70 Gastritis, unspecified, without bleeding; F32.A Depression, unspecified; R74.01 Elevation of levels of liver transaminase levels; Z95.1 Presence of aortocoronary bypass graft; Z86.73 Personal history of transient ischemic attack (TIA), and cerebral infarction without residual deficits; Z79.899 Other long term (current) drug therapy; Z79.82 Long term (current) use of aspirin; Z87.440 Personal history of urinary (tract) infections; Z86.16 Personal history of COVID-19; Z90.49 Acquired absence of other specified parts of digestive tract; Z87.01 Personal history of pneumonia (recurrent); Z68.34 Body mass index [BMI] 34.0-34.9, adult
CPT/HCPCS: 36415; 36573; 71045; 74018; 80048; 80053; 80076; 82140; 82962; 85025; 87426; 92610; 93970; 99285; C1725; C9113; J0690; J1650; J2250; J3010; J3490; J7030; J7070; A4315